=== PATIENT | female | born 1950 | race Caucasian/White ===

== ENCOUNTER → 2016-08-13 | Outpatient (CLI) | payer OTHER ==
[~2016-08-13] MED LIST: ACET-1256 PO; ALBU1AER9 INH; ASPI81TA28 PO; BUSP-8 PO; FLUT0.0529 NAE; HYOS0.1271 PO; IBUP-1451 PO; LORA-741 PO; METO-551 PO; OXYC-57 PO; PRLSR20 PO; SERT-234 PO; SIMV20TA2 PO
== END | disposition home or self-care (01) ==
LOC: C.LAB1850 12:45
PROVIDERS: ATTEND Obstetrics & Gynecology
DX: N83.209 Unspecified ovarian cyst, unspecified side (principal)

== ENCOUNTER 2016-10-05 10:59 | Inpatient (IN) | payer OTHER ==
[2016-09-15 15:49] LABS: BASO % 0.4 %; BASO ABS # 0.03 K/uL (0-0.2); COMPLETE YES; EOS % 1.3 %; HEMATOCRIT 41.8 % (37-47); IG% 0.1 %; LYMPH % 32.8 %; LYMPH ABS # 2.49 K/uL (1.2-3.4); MEAN CELL VOLUME 89.5 fL (80-100); MEAN CORPUSCULAR HEMOGLOBIN 29.1 pg (25-34); MEAN CORPUSCULAR HGB CONC 32.5 g/dl (32-36); MEAN PLATELET VOLUME 10.6 fL (7.4-10.4); MONO % 7.1 %; NEUT % 58.3 %; PLATELET COUNT 210 K/uL (130-400); RED BLOOD COUNT 4.67 M/uL (4.2-5.4); WHITE BLOOD COUNT 7.59 K/uL (4.8-10.8)
[2016-09-15 16:02] LABS: BLOOD UREA NITROGEN 22 mg/dl (7-18); CALCIUM 8.8 mg/dl (8.5-10.1); CARBON DIOXIDE 29 mmol/L (21-32); CHLORIDE 109 mmol/L (98-107); GLUCOSE 86 mg/dl (70-99); POTASSIUM 4.5 mmol/L (3.5-5.1); SODIUM 143 mmol/L (136-145)
[2016-09-21 08:52] VITALS: BMI 29.0; BMI 65.0
[~2016-10-05] VITALS: Ht 167.6 cm; Wt 82.7 kg
[~2016-10-05 10:59] MED LIST changes: +LACTATED RINGER'S 1000ML 1,000 ML IV SCH; -LORA-741 PO; -OXYC-57 PO; -PRLSR20 PO; -SIMV20TA2 PO
[2016-10-05] MEDS ORDERED: EpHEDrine SULFATE INJ 50 MG/ML AMP IV PRN (11:00)
[2016-10-05] MEDS ORDERED: FENTANYL CITRATE INJ 50 MCG/1 ML 2 ML VIAL IV PRN (11:00)
[2016-10-05] MEDS ORDERED: ONDANSETRON INJ 2 MG/ML 2 ML VIAL IV PRN ×2 (11:00→16:30)
[2016-10-05] MEDS ORDERED: ATROPINE SULFATE 0.1 MG/ML 5ML SYR IV PRN (11:00)
[2016-10-05] MEDS ORDERED: MIDAZOLAM HCL 1 MG/ML 2ML VIAL ONE (11:01)
[2016-10-05] MEDS ORDERED: FENTANYL CITRATE INJ 50 MCG/1 ML 2 ML VIAL ONE ×3 (11:01→14:49)
[2016-10-05 11:29] VITALS: BP 137/84; PULSE 71; TEMP 36.8; O2SAT 96; Ht 167.6 cm; Wt 82.7 kg
--- NOTE | 2016-10-05 12:41 | History & Physical Bridge Note ---
H&P Re-Evaluation Bridge Note: I have examined the patient, reviewed the History & Physical and in the interval since the performance of the History & Physical I have noted the following changes of clinical significance: No changes noted
[2016-10-05] MEDS ORDERED: BUPIVACAINE 0.5 % 5 MG/1 ML MPF 30ML VIAL ONE (13:14)
[2016-10-05] MEDS ORDERED: DEXAMETHASONE SOD INJ 4 MG/ML VIAL ONE (13:16)
[2016-10-05] MEDS ORDERED: LIDOCAINE HCL 2% 2 ML VIAL (20MG/ML) ONE (13:16)
[2016-10-05] MEDS ORDERED: GLYCOPYRROLATE INJ 0.2 MG/ML VIAL ONE ×2 (13:16)
[2016-10-05] MEDS ORDERED: NEOSTIGMINE METHYLSULFATE 5 MG/5 ML SYR ONE (13:16)
[2016-10-05] MEDS ORDERED: ONDANSETRON INJ 2 MG/ML 2 ML VIAL ONE ×2 (13:16)
[2016-10-05] MEDS ORDERED: ROCURONIUM BROMIDE 10 MG/ML 5 ML VIAL ONE ×2 (13:16→15:11)
[2016-10-05] MEDS ORDERED: PROPOFOL IV EMULSION 10 MG/ML 20 ML VIAL IV ONE (13:16)
[2016-10-05] MEDS ORDERED: PHENYLEPHRINE 100MCG/ML 5ML SYR ONE (13:55)
[2016-10-05] MEDS ORDERED: EpHEDrine SULFATE 50MG/5ML SYR ONE (13:55)
[2016-10-05] MEDS ORDERED: CEFOXITIN SOD 1 GM VIAL ONE (14:42)
[2016-10-05] MEDS ORDERED: METHYLENE BLUE 0.5% 10 ML VIAL ONE (15:36)
[2016-10-05] MEDS ORDERED: TISSEEL FIBRIN SEALANT 4ML TOP ONE (15:54)
[2016-10-05] MEDS ORDERED: SODIUM CHLORIDE 0.9% 1000ML 1,000 ML IV SCH (16:22)
--- NOTE | 2016-10-05 16:22 | [facility] Post Operative Brief Note ---
Immediate Operative Summary Operative Date Oct 05, 2016. Pre-Operative Diagnosis Ovarian Cyst, Left Ovarian Mass Post-Operative Diagnosis Complex Ovarian Mass, Extensive Adhesions Procedure(s) Performed Repair of Small Bowel Enterotomy, Laparoscopy Conversion to Laparotomy, Extensive Lysis of Adhesion, Removal of Left Adnexa, Cystocopy Surgeon Dr. Maddie Rees Engineer Technical Staff Surgeon(s) Dr. Ash, Dr. Blevins Estimated Blood Loss 100ml Findings Extensive adhesions Specimens a. left adenexa Drains Grimm Anesthesia General Complication(s) Small bowel enterotomy Disposition Recovery Room / PACU
[2016-10-05] MEDS ORDERED: BISACODYL 10 MG SUPP PR PRN (16:30)
[2016-10-05] MEDS ORDERED: MAGNESIUM HYDROXIDE SUSP 30 ML UDC PO PRN (16:30)
[2016-10-05] MEDS ORDERED: MEPERIDINE HCL 75 MG/ML CARP IV PRN (16:30)
[2016-10-05] MEDS ORDERED: NALOXONE HCL 0.4 MG/1 ML VIAL/CARP IV PRN (16:30)
[2016-10-05] MEDS ORDERED: SENNA 8.6 MG TAB PO PRN (16:30)
[2016-10-05] MEDS ORDERED: PROMETHAZINE HCL INJ 25 MG in SODIUM CHLORIDE 0.9% 50ML 50 ML IV PRN (16:30)
[2016-10-05] MEDS ORDERED: MEPERIDINE HCL 50 MG/ML CARP IV PRN (16:30)
[2016-10-05] MEDS ORDERED: HYDROmorphone HCL 0.5MG/ML 50 ML CASSETTE ONE (17:23)
--- NOTE | 2016-10-05 17:35 | Anesthesiology Progress Note ---
Anesthesia Post Op Note Date & Time Oct 05, 2016 at 17:35 Vital Signs Pain Intensity: 0 Vital Signs Past 12 Hours Date Time Temp Pulse Resp B/P Pulse Ox O2 Delivery O2 Flow Rate FiO2 10/05/16 17:25 87 16 123/73 96 Nasal Cannula 4 10/05/16 17:20 36.6 90 16 127/56 96 Nasal Cannula 4 10/05/16 17:10 90 16 120/71 94 Mask 5 10/05/16 17:00 85 16 131/76 96 Mask 5 10/05/16 16:50 85 16 122/71 98 Mask 5 10/05/16 16:40 83 16 112/67 96 Mask 10 10/05/16 16:33 36.0 92 16 156/64 97 Mask 10 10/05/16 11:29 36.8 71 18 137/84 96 Room Air Notes Mental Status: alert / awake / arousable, participated in evaluation Pt Amnestic to Procedure: Yes Nausea / Vomiting: adequately controlled Pain: adequately controlled Airway Patency, RR, SpO2: stable & adequate BP & HR: stable & adequate Hydration State: stable & adequate Neuraxial Anesthesia: was administered, sensory block is resolving Anesthetic Complications: no major complications apparent
[2016-10-05 17:38] VITALS: BP 113/64; PULSE 84; TEMP 36.4; O2SAT 94
[2016-10-05] MEDS ORDERED: CLINDAMYCIN IV 600 MG in DEXTROSE 5% ADD-VANTAGE 50ML 50 ML IV SCH (18:30)
[2016-10-05 18:40] VITALS: BP 104/63; PULSE 82; O2SAT 96
[2016-10-05] MEDS: LACTATED RINGER'S 1000ML 1,000 ML IV SCH (18:41)
[2016-10-05 19:20] VITALS: BP 111/70; PULSE 84; TEMP 36.6; O2SAT 93
[2016-10-05] MEDS: HYDROmorphone HCL 0.5MG/ML 50 ML CASSETTE IV PRN (19:35)
--- NOTE | 2016-10-05 19:36 | OPERATIVE REPORT ---
DATE OF OPERATION: 10/05/2016 PREOPERATIVE DIAGNOSIS: Complex left ovarian mass. POSTOPERATIVE DIAGNOSES: Complex left ovarian mass, extensive adhesions of the abdominal cavity and pelvis. PROCEDURES: Laparoscopy, conversion to laparotomy, extensive lysis of adhesions and small bowel enterotomy and repair and removal of left adnexa, cystoscopy. SURGEON: Dr. Rees. BUTTER PRINTER: Dr. Ash and Dr. Blevins. ESTIMATED BLOOD LOSS: 100 mL. FINDINGS: Extensive adhesions. SPECIMENS: Left adnexa. DRAINS: Grimm catheter. ANESTHETIC: General. COMPLICATIONS: Small bowel enterotomy. DISPOSITION: Recovery room. Reviewed with the patient prior to the procedure, the potential risks of the surgery and reviewed her prior laparotomy for colon resection 15 years ago for diverticulosis. Discussed the possibility of adhesions. She was sent to the recovery room and it is of note also she had a bowel prep prior to surgery. DESCRIPTION OF PROCEDURE: Time-out performed and we began the procedure by inserting a cervical acorn device attached to an Allis attached to her cervix. Grimm placed in her bladder as well. Gloves changed and a supraumbilical incision made with scalpel, dissecting down through the subcutaneous fat, her fascia in fact instantly opened without being cut. It essentially dehisced at the time of entry. I was able to then dissect down and was instantly into the peritoneal cavity. It should be noted no cutting or Metzenbaums were used, the stay sutures just simply fell apart. I was able to then place a blunt-tipped Barron trocar. Balloon inflated and CO2 gas insufflated. FINDINGS: Upper abdomen, there were adhesions, I was able to see past these, they were up by the umbilicus in the left side and the right upper quadrant, but I was able to move a 10 mm laparoscope past the adhesions and see the pelvis where extensive adhesions were attached to both pelvic sidewalls as well as the actual uterus. This was specifically the bowel. I was able to place ports on the right and left side, an accessory port on the lower left side. At this stage, we then were able to dock the robot arm #1 monopolar chato and #2 [place]. I was able to identify on that left side that there were extensive adhesions. We initially attempted to lyse adhesions. However, the adhesions were so thick and I was unable to even see the left adnexa no cutting or electrosurgery was used at this stage, just gentle dissection; however, despite this, the small bowel was attached to the left sidewall and as we dissected this away, a very small enterotomy was noticed. This was less than a centimeter in size. This was despite no use of electrosurgery and gentle dissection. Because of the enterotomy and extensive adhesions, I decided to convert to open procedure and Dr. Ash from general surgery was called. Robot was undocked, instruments had been removed and ports removed, gas allowed to escape. Incisions closed. Fascia closed with 0 Vicryl and the umbilical incision, all incisions were injected with 0.5% Marcaine. A Pfannenstiel incision made with scalpel, dissecting down through the subcutaneous fat, to the fascia in the midline. Fascia then dissected laterally with curved Mayos and then superiorly and inferiorly with the curved Mayos. Rectus muscle split and peritoneal cavity entered without difficulty. We then placed the Pisano Oconer retractor taking care in placement, bladder retractor placed and 2 moist lap packs placed as well as then retractor blade. I was able to have Trendelenburg position this time and in combination with Dr. Ash we analyzed the situation, there was a small bowel enterotomy, was small in nature, seemed to be no other issues with the bowel whatsoever as far as any other damage. This was repaired by Dr. Ash in his notes, he is dictating an operative note regarding this. With respect to the rest of adhesions Dr. Ash and I dissected these away carefully we were able to then identify the ovarian artery and vein on the left side. These were then clamped with a right angle clamp and then cut and then tied with 0 Vicryl. We then dissected the mass out, it was stuck posteriorly and was quite adherent. So at this stage, we then ligated the blood supply distal to the ovary, the utero-ovarian blood supply in the same process. Once this was identified, we were able to lift up the actual mass without rupture and remove it intact. Again, this was extensive adhesiolysis and the process removing the ovary took approximately 45 minutes all into itself. This was then removed, hemostasis was excellent at this stage. Since the only abnormal ovary was the left ovary and the right ovary we had talked about removing as an incidental thing. I did assess the right side; however, there were extensive bowel adhesions over this. I did not feel lysis of these adhesions and potential further enterotomy justified removing a normal ovary. I had discussed with the patient that it would be ideal to remove both ovaries but since the pathological one was removed, I did not think it was prudent to remove the normal right ovary. At this stage because of the extensive dissection of the sidewall, I did perform cystoscopy, which was performed by removing the Grimm catheter using a cystoscope with normal saline. I was able to visualize the bladder, there was no damage, good strong jets of blue dye from the left and right ureter openings and no other abnormalities seen. Cystoscope removed and a new Grimm catheter placed. Instruments removed from the cervix and vagina. Gloves and gown changed. On reinspection after generous irrigation and suction, hemostasis was improved. Because of the oozing nature though we did use 4 mL of Tisseel over the left adnexal bed. At this stage it should be noted, we had generous irrigation and suction prior to this. Retractor removed, packs removed, sponge and instrument counts correct. Fascia closed with #1 PDS, 2 stitches starting laterally. Each stitch tied 8 times and meeting in the midline. Subcutaneous fat irrigated and closed with 2-0 Vicryl. Skin closed with 4-0 subcuticular Monocryl. Sponge and instrument counts correct. Dermabond to the laparoscopic incisions and Steri-Strips to the Pfannenstiel incision. Urine was clear fluid at the end of the procedure and it should be noticed the patient was bowel prepped prior to because of the known risk of enterotomy due to the prior colectomy. Office documentation reflects this, discussion also happened with the patient. It should noted too as well that I had a conversation with her afterwards to inform him of the enterotomy and how this was addressed and fixed and how it will affect her course in the hospital. I attest to the content of the Intraoperative Record and any orders documented therein. Any exceptions are noted below. KONRAD
[2016-10-05] MEDS: CEFOXITIN IV 2,000 MG in DEXTROSE 5% 50ML 50 ML IV SCH (20:14)
[2016-10-05 20:15] VITALS: BP 100/63; PULSE 77; TEMP 36.7; O2SAT 96
[2016-10-05 21:25] VITALS: BP 109/68; PULSE 85
[2016-10-05] MEDS: METOPROLOL TARTRATE 50 MG TAB PO SCH (21:37)
[2016-10-05] MEDS ORDERED: GENTAMICIN INJ 60 MG in DEXTROSE 5% 100ML 100 ML IV SCH (22:00)
[2016-10-06] VITALS (9 sets, daily range): BP systolic 103–128; BP diastolic 62–82; PULSE 75–88; TEMP 36.4–36.9; O2SAT 82–95
[2016-10-06] MEDS: CEFOXITIN IV 2,000 MG in DEXTROSE 5% 50ML 50 ML IV SCH ×2 (04:06→11:56)
[2016-10-06] MEDS: LACTATED RINGER'S 1000ML 1,000 ML IV SCH ×3 (04:06→20:37)
[2016-10-06 07:01] LABS: BASO % 0.1 %; BASO ABS # 0.01 K/uL (0-0.2); COMPLETE YES; HEMATOCRIT 39.1 % (37-47); IG% 0.2 %; LYMPH % 8.3 %; LYMPH ABS # 1.14 K/uL (1.2-3.4); MEAN CELL VOLUME 89.1 fL (80-100); MEAN CORPUSCULAR HEMOGLOBIN 29.4 pg (25-34); MEAN PLATELET VOLUME 10.4 fL (7.4-10.4); MONO % 4.1 %; NEUT % 87.3 %; PLATELET COUNT 216 K/uL (130-400); RED BLOOD COUNT 4.39 M/uL (4.2-5.4); WHITE BLOOD COUNT 13.72 K/uL (4.8-10.8)
--- NOTE | 2016-10-06 07:05 | OPERATIVE REPORT ---
DATE OF OPERATION: 10/05/2016 PREOPERATIVE DIAGNOSIS: Small bowel enterotomy. POSTOPERATIVE DIAGNOSIS: Same. PROCEDURE: Repair of small bowel enterotomy. SURGEON: Giancarlo Ash MD EMERGENCY DEPARTMENT MANAGER: Edi Rees MD FINDINGS: I was asked to assist and participate in this procedure that started as a robotic assisted salpingo-oophorectomy. At one point, bowel contents were noted in the field and I was asked to evaluate for enterotomy. Incision and exposure were already begun. There were multiple adhesions in the pelvis to the fundus of the uterus, behind the uterus and to the colon. The patient had a previous sigmoid resection for diverticular disease. There was a 1-1.5 cm enterotomy on the anterior mesenteric border of a loop of small bowel towards the left side of the pelvis. There were no other enterotomies identified. The loop of small bowel was mobilized and away from adhesions to the lateral abdominal wall and to some other bowel inferiorly. Once it was freed, the other areas were inspected and no other enterotomies were identified. This was closed. It was closed transversely with an inner layer of running 3-0 Vicryl using a canal technique and then that suture line was oversewn with 3-0 silk Lembert interrupted sutures. The repair was felt to be good. The lumen was not compromised and was placed back into its anatomic position. The remainder of the procedure will be dictated by Dr. Rees. I attest to the content of the Intraoperative Record and any orders documented therein. Any exceptio ns are noted below.
[2016-10-06] MEDS: HYDROmorphone HCL 0.5MG/ML 50 ML CASSETTE IV PRN ×2 (07:22→15:21)
[2016-10-06 07:27] LABS: BUN/CREATININE RATIO 9.8 (10-20); CALCIUM 8.4 mg/dl (8.5-10.1); CREATININE 2.1 mg/dl (0.60-1.20); POTASSIUM 4.5 mmol/L (3.5-5.1)
--- NOTE | 2016-10-06 07:44 | OB/GYN Progress Note ---
[facility] Progress Note Date of Service Oct 06, 2016. Subjective conversation w/ patient, physical exam, chart review, lab review Ambulation: limited ambulation Voiding: avila catheter in place Passing Gas: No Diet Tolerance: Clear Liquids Objective Vital Signs Date Time Temp Pulse Resp B/P Pulse Ox O2 Delivery O2 Flow Rate FiO2 10/06/16 07:21 93 Room Air 10/06/16 04:05 36.5 75 16 118/75 95 Nasal Cannula 2.0 10/06/16 00:10 36.4 80 18 103/62 93 Nasal Cannula 2.0 10/05/16 21:25 85 109/68 10/05/16 20:15 36.7 77 16 100/63 96 Nasal Cannula 2.0 10/05/16 20:15 Nasal Cannula 2.0 10/05/16 19:20 36.6 84 16 111/70 93 Nasal Cannula 2.0 10/05/16 18:40 82 18 104/63 96 10/05/16 17:38 94 Nasal Cannula 2.0 10/05/16 17:38 Nasal Cannula 2.0 10/05/16 17:38 36.4 84 18 113/64 94 Nasal Cannula 2.0 10/05/16 17:25 87 16 123/73 96 Nasal Cannula 4 10/05/16 17:20 36.6 90 16 127/56 96 Nasal Cannula 4 10/05/16 17:10 90 16 120/71 94 Mask 5 10/05/16 17:00 85 16 131/76 96 Mask 5 10/05/16 16:50 85 16 122/71 98 Mask 5 10/05/16 16:40 83 16 112/67 96 Mask 10 10/05/16 16:33 36.0 92 16 156/64 97 Mask 10 10/05/16 11:29 36.8 71 18 137/84 96 Room Air Physical Exam General Appearance: WELL-APPEARING Respiratory/Chest: lungs clear Cardiovascular: regular rate, rhythm Abdomen: normal bowel sounds, + distended Incision Description: Clean, Dry & Intact Extremities: no pedal edema Laboratory Results Last 24 Hours Test 10/06/16 06:37 White Blood Count 13.72 K/uL Red Blood Count 4.39 M/uL Hemoglobin 12.9 g/dL Hematocrit 39.1 % Mean Corpuscular Volume 89.1 fL Mean Corpuscular Hemoglobin 29.4 pg Mean Corpuscular Hemoglobin Concent 33.0 g/dl Platelet Count 216 K/uL Mean Platelet Volume 10.4 fL Neutrophils (%) (Auto) 87.3 % Lymphocytes (%) (Auto) 8.3 % Monocytes (%) (Auto) 4.1 % Eosinophils (%) (Auto) 0.0 % Basophils (%) (Auto) 0.1 % Neutrophils # (Auto) 11.98 K/uL Lymphocytes # (Auto) 1.14 K/uL Monocytes # (Auto) 0.56 K/uL Eosinophils # (Auto) 0.00 K/uL Basophils # (Auto) 0.01 K/uL RDW Standard Deviation 50.8 fL RDW Coefficient of Variation 15.5 % Immature Granulocyte % (Auto) 0.2 % Immature Granulocyte # (Auto) 0.03 K/uL Sodium Level 139 mmol/L Potassium Level 4.5 mmol/L Chloride Level 107 mmol/L Carbon Dioxide Level 24 mmol/L Anion Gap 8.0 mmol/L Blood Urea Nitrogen 21 mg/dl Creatinine 2.10 mg/dl Est Creatinine Clear Calc Drug Dose 28.6 ml/min Estimated GFR () 27.7 Estimated GFR (Non- 23.9 BUN/Creatinine Ratio 9.8 Random Glucose 141 mg/dl Calcium Level 8.4 mg/dl Assessment and Plan Post-Op Day Number: 1 Continue Routine Care: Distended, but normal bowel sounds. Encourage ambulation. Stop MEDICAL RECORD CLERK, dulcolax supps JFD
[2016-10-06] MEDS ORDERED: BISACODYL 10 MG SUPP PR PRN (07:45)
[2016-10-06] MEDS: METOPROLOL TARTRATE 50 MG TAB PO SCH ×2 (08:36→21:01)
[2016-10-06] MEDS: SERTRALINE HCL 100 MG TAB PO SCH (08:37)
--- NOTE | 2016-10-06 08:55 | Progress Note ---
Progress Note Date of Service Oct 06, 2016. Progress Note Note, I reviewed the enterotomy with the patient. This was not an unexpected issue as we had discussed pre-op the concerns with prior laparotomy with colectomy. However, reviewed plan and procedure in detail. GEETA
--- NOTE | 2016-10-06 09:33 | Medical Consult ---
Consultation Date of Consultation: Oct 06, 2016. Attending Physician: Lucia Rees M.D. Reason for Consultation: Medical management History of Present Illness This is a 66-year-old female with a past medical history of hypertension hyperlipidemia, GERD, anxiety, depression, chronic tobacco use, status post a complex left ovarian mass with extensive adhesions of the abdominal cavity and pelvis removal and small bowel enterotomy on 10/05/[address] Rees and Dr. Ash. She was completed starting at laparoscopic and was converted to an open surgery due to extensiveness of abdominal adhesions. The patient has had a prior open colectomy and laparoscopic cholecystectomy. Patient was seen this morning and she is complaining of abdominal bloating as well as mild nausea. The patient just received a Dulcolax suppository approximately 15 minutes ago and feels as if she needs to have a bowel movement. Her pain is well controlled. She is able to stand at the bedside and actually reports this is improving her pain and discomfort. The patient does not wear oxygen at baseline. This morning the patient was satting 82% on room air so was placed on supplemental O2, currently on 2 L O2 via NC and her sats are low 90s. The patient lives at home with her who she feels will be able to care for her when she goes home. Past Medical/Surgical History 1. Hypertension 2. hyperlipidemia 3. diverticulosis 4. left ovarian mass status post complex left ovarian removal with extensive adhesions, small bowel enterotomy on 5. anxiety 6. depression 7. GERD 8. Chronic tobacco use Surgical history Laparoscopic cholecystectomy Prior open colectomy Social History Smoking Status: Current Every Day Smoker (half pack a day since age 13) Smokeless Tobacco Use: No Alcohol Use: none Drug Use: none Marital Status: Housing Status: lives with family Allergies Coded Allergies: No Known Allergies (Unverified , 10/05/16) Home Medications ASA 81 mg daily BuSpar 10 mg 3 times a day Colestipol 5 mg twice a day Metoprolol tartrate 50 mg twice a day Omeprazole 20 mg every morning Pro-air 2 puffs 4 times a day as needed for shortness of breath Sertraline 100 mg daily Current Inpatient Medications Current Inpatient Medications Medications (Trade) Dose Ordered Sig/Priscila Route Start Time Stop Time Status Last Admin Dose Admin Ketorolac Tromethamine (Toradol Inj) 15 mg Q6H PRN IV. 10/05/16 16:30 10/10/16 16:29 Future hold Meperidine HCl (Demerol Inj) 50 mg Q4H PRN IV 10/05/16 16:30 10/19/16 16:29 Future hold Meperidine HCl (Demerol Inj) 75 mg Q4H PRN IV 10/05/16 16:30 10/19/16 16:29 Future hold Oxycodone/ Acetaminophen (Percocet 5-325mg Tab) 1 tab for pain scale 1-5 2 t... Q4H PRN PO 10/05/16 16:30 10/19/16 16:29 Ibuprofen (Motrin Tab) 600 mg Q4H PRN PO 10/05/16 16:30 11/04/16 16:29 Ondansetron HCl 4 mg 4 mg Q4H PRN IV 10/05/16 16:30 11/04/16 16:29 Promethazine HCl/ Sodium Chloride (Phenergan Inj/ Nss 50ml) 51 ml @ 204 mls/hr Q4H PRN IV 10/05/16 16:30 11/04/16 16:29 Bisacodyl (Dulcolax Supp) 10 mg DAILY PRN CA 10/05/16 16:30 11/04/16 16:29 10/06/16 08:38 10 MG Magnesium Hydroxide 30 ml 30 ml HS PRN PO 10/05/16 16:30 11/04/16 16:29 Lactated Ringer's (Lr 1000ml) 1,000 ml @ 125 mls/hr Q8H IV 10/05/16 16:16 11/04/16 16:15 10/06/16 04:06 125 MLS/HR Senna (Senokot Tab) 17.2 mg HS PRN PO 10/05/16 16:30 11/04/16 16:29 10/06/16 08:37 17.2 MG Naloxone HCl (Narcan Inj) 0.1 mg Q5M PRN IV 10/05/16 16:30 10/06/16 16:00 Hydromorphone HCl 25 mg 25 mg PRN PRN IV 10/05/16 16:30 10/06/16 16:00 10/06/16 07:22 25 MG Sodium Chloride 1,000 ml @ 15 mls/hr Q24H IV 10/05/16 16:22 10/06/16 16:00 Cefoxitin Sodium/ Dextrose (Mefoxin IV/D5 50ml) 60 ml @ 120 mls/hr Q8H IV 10/05/16 20:00 10/06/16 19:59 10/06/16 04:06 120 MLS/HR Buspirone HCl (Buspar Tab) 10 mg TID PO 10/06/16 08:00 11/05/16 07:59 10/06/16 08:37 10 MG Metoprolol Tartrate (Lopressor Tab) 50 mg BID PO 10/06/16 08:00 11/05/16 07:59 10/06/16 08:36 50 MG Sertraline HCl (Zoloft Tab) 200 mg QAM PO 10/06/16 08:00 11/05/16 07:59 10/06/16 08:37 200 MG Miscellaneous Information (Discontinue SETTER MOLDING AND COREMAKING MACHINES) 1 ea ONE ONCE N/A 10/06/16 16:00 10/06/16 16:01 Bisacodyl (Dulcolax Supp) 10 mg BID PRN CA 10/06/16 07:45 11/05/16 07:44 Review of Systems Constitutional: + fatigue, No fever, chills, sweats,or weakness Eyes: No diplopia, no changes in vision ENT: No sore throat, tinnitus, or trouble swallowing Respiratory: No shortness of breath, No dyspnea at rest or on exertion, no cough or sputum Cardiovascular: No chest pain, palpitations, or flutter Abdomen: + abdominal bloating, moderate abdominal pain near incision, soreness, + nausea, no vomiting. Musculoskeletal: No calf pain, No joint pain, No swelling Genitourinary : No dysuria or urinary frequency, No hematuria Neurologic: No numbness/tingling, no difficulty with ambulation, no sensory or motor deficits Psychiatric: + depression or anxiety hx but none currently Endocrine: No fatigue, No weight changes Integumentary: No itch, No rash Constitutional: + fever Physical Exam Date Time Temp Pulse Resp B/P Pulse Ox O2 Delivery O2 Flow Rate FiO2 10/06/16 07:50 Nasal Cannula 2.0 Humidified Air 10/06/16 07:50 94 Nasal Cannula 2.0 Humidified Oxygen 10/06/16 07:50 36.6 88 18 116/82 82 Room Air 10/06/16 07:21 93 Room Air 10/06/16 04:05 36.5 75 16 118/75 95 Nasal Cannula 2.0 10/06/16 00:10 36.4 80 18 103/62 93 Nasal Cannula 2.0 10/05/16 21:25 85 109/68 10/05/16 20:15 36.7 77 16 100/63 96 Nasal Cannula 2.0 10/05/16 20:15 Nasal Cannula 2.0 10/05/16 19:20 36.6 84 16 111/70 93 Nasal Cannula 2.0 10/05/16 18:40 82 18 104/63 96 10/05/16 17:38 94 Nasal Cannula 2.0 10/05/16 17:38 Nasal Cannula 2.0 10/05/16 17:38 36.4 84 18 113/64 94 Nasal Cannula 2.0 10/05/16 17:25 87 16 123/73 96 Nasal Cannula 4 10/05/16 17:20 36.6 90 16 127/56 96 Nasal Cannula 4 10/05/16 17:10 90 16 120/71 94 Mask 5 10/05/16 17:00 85 16 131/76 96 Mask 5 10/05/16 16:50 85 16 122/71 98 Mask 5 10/05/16 16:40 83 16 112/67 96 Mask 10 10/05/16 16:33 36.0 92 16 156/64 97 Mask 10 10/05/16 11:29 36.8 71 18 137/84 96 Room Air General: awake, alert, no apparent distress, + overweight Head: Normocephalic, atraumatic ENT: PERRL, EOMI, no pharyngeal exudate, mucous membranes moist Chest: Breath sounds are diminished throughout but clear, on 2 L O2, no wheezing , rales, rhonchi Cardiac: Regular rate and rhythm, no murmur, no JVD, normal peripheral pulses, good capillary refill Abdominal: + Abdominal incision above the umbilicus and left lower quadrant, horizontal incision suprapubically approximately 6 inches long with Steri- Strips in place. Incision appears clean and intact. + Abdominal distention, hypoactive bowel sounds, +tender to palpation Extremities: Normal inspection, no peripheral edema or erythema, calfs nontender to palpation Psych: Normal mood and affect Neuro: AAO x 3, strength intact bilaterally and related 5/5, no motor deficits, speech is clear, no peripheral sensory deficits Laboratory Results Last 24 Hours Test 10/06/16 06:37 White Blood Count 13.72 K/uL Red Blood Count 4.39 M/uL Hemoglobin 12.9 g/dL Hematocrit 39.1 % Mean Corpuscular Volume 89.1 fL Mean Corpuscular Hemoglobin 29.4 pg Mean Corpuscular Hemoglobin Concent 33.0 g/dl Platelet Count 216 K/uL Mean Platelet Volume 10.4 fL Neutrophils (%) (Auto) 87.3 % Lymphocytes (%) (Auto) 8.3 % Monocytes (%) (Auto) 4.1 % Eosinophils (%) (Auto) 0.0 % Basophils (%) (Auto) 0.1 % Neutrophils # (Auto) 11.98 K/uL Lymphocytes # (Auto) 1.14 K/uL Monocytes # (Auto) 0.56 K/uL Eosinophils # (Auto) 0.00 K/uL Basophils # (Auto) 0.01 K/uL RDW Standard Deviation 50.8 fL RDW Coefficient of Variation 15.5 % Immature Granulocyte % (Auto) 0.2 % Immature Granulocyte # (Auto) 0.03 K/uL Sodium Level 139 mmol/L Potassium Level 4.5 mmol/L Chloride Level 107 mmol/L Carbon Dioxide Level 24 mmol/L Anion Gap 8.0 mmol/L Blood Urea Nitrogen 21 mg/dl Creatinine 2.10 mg/dl Est Creatinine Clear Calc Drug Dose 28.6 ml/min Estimated GFR () 27.7 Estimated GFR (Non- 23.9 BUN/Creatinine Ratio 9.8 Random Glucose 141 mg/dl Calcium Level 8.4 mg/dl Assessment & Plan 66 yo F with a past medical history of hypertension hyperlipidemia, GERD, anxiety, depression, chronic tobacco use, status post a complex left ovarian mass with extensive adhesions of the abdominal cavity and pelvis removal and small bowel enterotomy on 10/05/[address] Rees and Dr. Ash. She was completed starting at laparoscopic and was converted to an open surgery due to extensiveness of abdominal adhesions. S/p complex left ovarian mass removal and small bowel enterotomy, 10/05/[address] Ash and Dr. Rees - Pain management and bowel regimen per primary service - Incision appears intact, clean, without surrounding erythema Hypoxia - O2 saturations were 82% this morning on room air, patient was placed on 2 L supplemental oxygen and his sats improved to 94%. We'll continue to encourage ambulation. - Encourage incentive spirometry, flutter therapy, ambulation to improve breath sounds as if likely atelectasis and status post surgery causing reduced breath sounds. The patient has an inhaler in the past for acute pneumonia, does not use inhaler regularly - PT OT consults per primary service Chronic tobacco use - Will order a nicotine patch - cessation encouraged Hypertension - Continue metoprolol tartrate 50 mg twice a day, continue baby aspirin daily Hyperlipidemia - Continue colestipol 5 mg twice a day Depression and anxiety - Continue BuSpar 10 mg 3 times a day, sertraline 100 mg daily DVT prophylaxis: Teds, SCDs, ambulation CODE STATUS: Full code Disposition: Patient from home, return when medically stable per primary service ATTENDING ATTESTATION I have seen and examined that patient and agree with the assessment and plan as stated above by ADRIANA Gonzalez. Patient is a 66 y.o.F who originally was to have an elective Abdominal Laparoscopy for removal of adnexal mass. Procedure was complicated by a small bowel enterotomy and requiring general surgery to perform and open laparotomy for repair of SBO enterotomy. Hospitalist service was consulted for general medical management post-op. Post-op patient noticed to be hypoxic although she denies any SOB or chest pain. She also is complaining of nausea and vomiting. Patient noticed to have 200 cc urine output over the shift. Vitals - reviewed GEN- NAD CVS- RRR RESP- CTA ABD- + BS/+ diffuse tenderness EXT- no cyanosis clubbing or edema Labs- Reviewed POD#1 s/p laparoscopy for adnexal mass removal complicated by small bowel enterotomy requiring open laprascopy for repair by general surgery - Gen surgery concerned for SBO - given concern for ureteral laceration I have spoken to general surgery who agrees a CT abdomen/ pelvis would be appropriate - NPO NHAN - patient has had poor urine output post- op - will check CT abdomen pelvis r/o ureteral laceration given surgical complication - continue IVF - if creatinine does not improve/consult nephrology Hypoxia - suspect 2/2 to active abdominal issues - check CXR Thank you for the consult and we will follow
--- NOTE | 2016-10-06 10:34 | Anesthesiology Progress Note ---
Anesthesia Post Op Note Date & Time Oct 06, 2016 at 10:33 Vital Signs Pain Intensity: 6.0 Vital Signs Past 12 Hours Date Time Temp Pulse Resp B/P Pulse Ox O2 Delivery O2 Flow Rate FiO2 10/06/16 10:20 93 Nasal Cannula 2.0 Humidified Oxygen 10/06/16 10:15 88 Room Air 10/06/16 07:50 Nasal Cannula 2.0 Humidified Air 10/06/16 07:50 94 Nasal Cannula 2.0 Humidified Oxygen 10/06/16 07:50 36.6 88 18 116/82 82 Room Air 10/06/16 07:21 93 Room Air 10/06/16 04:05 36.5 75 16 118/75 95 Nasal Cannula 2.0 10/06/16 00:10 36.4 80 18 103/62 93 Nasal Cannula 2.0 Notes Mental Status: alert / awake / arousable, participated in evaluation Pt Amnestic to Procedure: Yes Nausea / Vomiting: adequately controlled Pain: adequately controlled Airway Patency, RR, SpO2: stable & adequate BP & HR: stable & adequate Hydration State: stable & adequate Anesthetic Complications: no major complications apparent
--- NOTE | 2016-10-06 11:47 | Surgery Progress Note ---
Surgery Progress Note Date of Service Oct 06, 2016. Subjective Post OP Day: 1 Not feeling well + nausea abdominal bloating and pain No flatus or bowel movement Walked hallway felt better Tolerated liquids this morning however nauseated now. Objective Vital Signs: Date Time Temp Pulse Resp B/P Pulse Ox O2 Delivery O2 Flow Rate FiO2 10/06/16 10:20 93 Nasal Cannula 2.0 Humidified Oxygen 10/06/16 10:15 88 Room Air 10/06/16 07:50 Nasal Cannula 2.0 Humidified Air 10/06/16 07:50 94 Nasal Cannula 2.0 Humidified Oxygen 10/06/16 07:50 36.6 88 18 116/82 82 Room Air 10/06/16 07:21 93 Room Air 10/06/16 04:05 36.5 75 16 118/75 95 Nasal Cannula 2.0 10/06/16 00:10 36.4 80 18 103/62 93 Nasal Cannula 2.0 10/05/16 21:25 85 109/68 10/05/16 20:15 36.7 77 16 100/63 96 Nasal Cannula 2.0 10/05/16 20:15 Nasal Cannula 2.0 10/05/16 19:20 36.6 84 16 111/70 93 Nasal Cannula 2.0 10/05/16 18:40 82 18 104/63 96 10/05/16 17:38 94 Nasal Cannula 2.0 10/05/16 17:38 Nasal Cannula 2.0 10/05/16 17:38 36.4 84 18 113/64 94 Nasal Cannula 2.0 10/05/16 17:25 87 16 123/73 96 Nasal Cannula 4 10/05/16 17:20 36.6 90 16 127/56 96 Nasal Cannula 4 10/05/16 17:10 90 16 120/71 94 Mask 5 10/05/16 17:00 85 16 131/76 96 Mask 5 10/05/16 16:50 85 16 122/71 98 Mask 5 10/05/16 16:40 83 16 112/67 96 Mask 10 10/05/16 16:33 36.0 92 16 156/64 97 Mask 10 General Appearance: WD/WN, + moderate distress Head: normocephalic, atraumatic Respiratory/Chest: no respiratory distress, no accessory muscle use Abdomen: + distended, + tenderness Incision(s): clean, dry, intact Laboratory Results: Results Past 24 Hours Test 10/06/16 06:37 Range/Units White Blood Count 13.72 4.8-10.8 K/uL Red Blood Count 4.39 4.2-5.4 M/uL Hemoglobin 12.9 12.0-16.0 g/dL Hematocrit 39.1 37-47 % Mean Corpuscular Volume 89.1 80-100 fL Mean Corpuscular Hemoglobin 29.4 25-34 pg Mean Corpuscular Hemoglobin Concent 33.0 32-36 g/dl Platelet Count 216 130-400 K/uL Mean Platelet Volume 10.4 7.4-10.4 fL Neutrophils (%) (Auto) 87.3 % Lymphocytes (%) (Auto) 8.3 % Monocytes (%) (Auto) 4.1 % Eosinophils (%) (Auto) 0.0 % Basophils (%) (Auto) 0.1 % Neutrophils # (Auto) 11.98 1.4-6.5 K/uL Lymphocytes # (Auto) 1.14 1.2-3.4 K/uL Monocytes # (Auto) 0.56 0.11-0.59 K/uL Eosinophils # (Auto) 0.00 0-0.5 K/uL Basophils # (Auto) 0.01 0-0.2 K/uL RDW Standard Deviation 50.8 36.4-46.3 fL RDW Coefficient of Variation 15.5 11.5-14.5 % Immature Granulocyte % (Auto) 0.2 % Immature Granulocyte # (Auto) 0.03 0.00-0.02 K/uL Sodium Level 139 136-145 mmol/L Potassium Level 4.5 3.5-5.1 mmol/L Chloride Level 107 98-107 mmol/L Carbon Dioxide Level 24 21-32 mmol/L Anion Gap 8.0 3-11 mmol/L Blood Urea Nitrogen 21 7-18 mg/dl Creatinine 2.10 0.60-1.20 mg/dl Est Creatinine Clear Calc Drug Dose 28.6 ml/min Estimated GFR () 27.7 Estimated GFR (Non- 23.9 BUN/Creatinine Ratio 9.8 10-20 Random Glucose 141 70-99 mg/dl Calcium Level 8.4 8.5-10.1 mg/dl Assessment & Plan POD # 1 s/p repair of small bowel enterotomy, conversion to ex lap with excision of right adnexa - afebrile - Leukocytosis of 13.72 - moderate abdominal distention with tenderness and nausea - no flatus or bowel movement with suppositories - creatinine 2.10 today - low urine output May have Ileus given amount of distention? Hypoxia Plan: CT of abdomen and pelvis recommended by medicine service to rule out iatrogenic ureter injury given low urine output, agree with this to evaluate abdominal distention Keep patient NPO, may have mouth swabs Continue pain management prn encourage ambulation continue management per Dr. Rees Addendum 10/06/2016 1:58 pm ABDOMEN AND PELVIS CT WITHOUT CONTRAST CT DOSE: 719.99 mGy.cm HISTORY: Postoperative pain r/o bowel obstruction/ concern for laceration of ureter TECHNIQUE: Multiaxial CT images of the abdomen and pelvis were performed without contrast. COMPARISON STUDY: None. FINDINGS: Bibasilar atelectatic change. Liver spleen and pancreas are unremarkable. Evidence for prior cholecystectomy. Kidneys negative for hydronephrosis. Findings consistent with partial distal small bowel obstruction. This potentially relates to an adhesion of the anterior pelvic wall best seen transaxial image 73. Scattered subcutaneous and intraperitoneal air postoperative basis. Grimm catheter within a relatively collapsed bladder. Uterus is midline. Multiple surgical clips in the presacral region. Colonic pattern is nonobstructive with the colon relatively collapsed. No evidence for abscess or collection. IMPRESSION: 1. Findings consistent with a distal partial small bowel obstruction possibly related to adhesions of the anterior pelvic wall. 2. Postoperative subcutaneous as well as intraperitoneal air. 3. Mild bibasilar atelectatic change. PLAN: Keep patient NPO Continue IV fluids and pain management prn encourage ambulation Await return of bowel function and decreased abdominal distention to advance diet to clear liquids Dr. Ash has seen and examined patient, agrees with assessment and plan.
--- NOTE | 2016-10-06 13:10 | DIAGNOSTIC IMAGING REPORT ---
CHEST 2 VIEWS ROUTINE CLINICAL HISTORY: Hypoxia dyspnea COMPARISON STUDY: No previous studies for comparison. FINDINGS: The bones soft tissues and hemidiaphragms are normal. The cardiomediastinal silhouette is normal. The lungs are clear. The pulmonary vasculature is normal. Small focal atelectatic change medial aspect left lower lobe. IMPRESSION: Small focal atelectatic region medial aspect left lower lobe. Electronically signed by: Giancarlo Storm M.D. 10/06/2016 1:08 PM Dictated Date/Time: 10/06/2016 1:07 PM
--- NOTE | 2016-10-06 13:25 | DIAGNOSTIC IMAGING REPORT ---
ABDOMEN AND PELVIS CT WITHOUT CONTRAST CT DOSE: 719.99 mGy.cm HISTORY: Postoperative pain r/o bowel obstruction/ concern for laceration of ureter TECHNIQUE: Multiaxial CT images of the abdomen and pelvis were performed without contrast. COMPARISON STUDY: None. FINDINGS: Bibasilar atelectatic change. Liver spleen and pancreas are unremarkable. Evidence for prior cholecystectomy. Kidneys negative for hydronephrosis. Findings consistent with partial distal small bowel obstruction. This potentially relates to an adhesion of the anterior pelvic wall best seen transaxial image 73. Scattered subcutaneous and intraperitoneal air postoperative basis. Grimm catheter within a relatively collapsed bladder. Uterus is midline. Multiple surgical clips in the presacral region. Colonic pattern is nonobstructive with the colon relatively collapsed. No evidence for abscess or collection. IMPRESSION: 1. Findings consistent with a distal partial small bowel obstruction possibly related to adhesions of the anterior pelvic wall. 2. Postoperative subcutaneous as well as intraperitoneal air. 3. Mild bibasilar atelectatic change. Electronically signed by: Giancarlo Storm M.D. 10/06/2016 1:23 PM Dictated Date/Time: 10/06/2016 1:15 PM
[2016-10-06] MEDS ORDERED: DC PCA ONE (16:00)
[2016-10-06 16:39] LABS: HEMATOCRIT 38.5 % (37-47); MEAN CELL VOLUME 89.1 fL (80-100); MEAN CORPUSCULAR HEMOGLOBIN 30.1 pg (25-34); MEAN CORPUSCULAR HGB CONC 33.8 g/dl (32-36); MEAN PLATELET VOLUME 10.3 fL (7.4-10.4); PLATELET COUNT 217 K/uL (130-400); RED BLOOD COUNT 4.32 M/uL (4.2-5.4); WHITE BLOOD COUNT 12.46 K/uL (4.8-10.8)
[2016-10-06 17:03] LABS: BUN/CREATININE RATIO 12.5 (10-20); CALCIUM 8.7 mg/dl (8.5-10.1); CREATININE 1.8 mg/dl (0.60-1.20); POTASSIUM 4.6 mmol/L (3.5-5.1)
[2016-10-06] MEDS: KETOROLAC TROMETHAMINE 15 MG/ML VIAL IV. PRN (20:59)
[2016-10-07] VITALS (9 sets, daily range): BP systolic 116–161; BP diastolic 69–84; PULSE 78–95; TEMP 36.7–37.2; O2SAT 90–95
[2016-10-07] MEDS: KETOROLAC TROMETHAMINE 15 MG/ML VIAL IV. PRN ×4 (03:26→22:10)
[2016-10-07] MEDS: LACTATED RINGER'S 1000ML 1,000 ML IV SCH ×3 (05:13→21:14)
[2016-10-07 06:47] LABS: BASO % 0.1 %; BASO ABS # 0.01 K/uL (0-0.2); COMPLETE YES; EOS % 0.1 %; HEMATOCRIT 38.2 % (37-47); IG% 0.3 %; LYMPH % 12.7 %; LYMPH ABS # 1.33 K/uL (1.2-3.4); MEAN CELL VOLUME 88.4 fL (80-100); MEAN CORPUSCULAR HEMOGLOBIN 29.4 pg (25-34); MEAN CORPUSCULAR HGB CONC 33.2 g/dl (32-36); MEAN PLATELET VOLUME 10.1 fL (7.4-10.4); NEUT % 82.8 %; PLATELET COUNT 220 K/uL (130-400); RED BLOOD COUNT 4.32 M/uL (4.2-5.4); WHITE BLOOD COUNT 10.49 K/uL (4.8-10.8)
[2016-10-07 07:08] LABS: BUN/CREATININE RATIO 16.9 (10-20); CALCIUM 8.8 mg/dl (8.5-10.1); CREATININE 1.5 mg/dl (0.60-1.20); POTASSIUM 4.1 mmol/L (3.5-5.1)
--- NOTE | 2016-10-07 08:12 | OB/GYN Progress Note ---
[employer] Progress Note Date of Service Oct 07, 2016. Subjective conversation w/ patient, physical exam, chart review, lab review, review of studies Ambulation: ambulating normally Voiding: avila catheter in place Diet Tolerance: NPO Objective Vital Signs Date Time Temp Pulse Resp B/P Pulse Ox O2 Delivery O2 Flow Rate FiO2 10/07/16 03:30 37.2 80 20 138/79 93 Nasal Cannula Humidified Oxygen 10/07/16 00:25 92 Nasal Cannula 2.0 Humidified Oxygen 10/07/16 00:25 37.0 78 16 120/69 92 Nasal Cannula 2.0 Humidified Oxygen 10/06/16 20:25 36.9 77 16 128/79 92 Nasal Cannula 2.0 Humidified Oxygen 10/06/16 20:25 92 Nasal Cannula 2.0 Humidified Oxygen 10/06/16 16:10 Nasal Cannula 2.0 10/06/16 16:10 36.4 80 20 111/71 Room Air 10/06/16 12:30 36.7 80 20 111/73 95 Nasal Cannula 95 Humidified Oxygen 10/06/16 10:20 93 Nasal Cannula 2.0 Humidified Oxygen 10/06/16 10:15 88 Room Air Physical Exam General Appearance: WELL-APPEARING Respiratory/Chest: lungs clear Cardiovascular: regular rate, rhythm Abdomen: normal bowel sounds, non tender, + distended Incision Description: Clean, Dry & Intact Extremities: no calf tenderness Laboratory Results Last 24 Hours Test 10/06/16 15:24 10/07/16 06:31 White Blood Count 12.46 K/uL 10.49 K/uL Red Blood Count 4.32 M/uL 4.32 M/uL Hemoglobin 13.0 g/dL 12.7 g/dL Hematocrit 38.5 % 38.2 % Mean Corpuscular Volume 89.1 fL 88.4 fL Mean Corpuscular Hemoglobin 30.1 pg 29.4 pg Mean Corpuscular Hemoglobin Concent 33.8 g/dl 33.2 g/dl RDW Standard Deviation 50.5 fL 50.9 fL RDW Coefficient of Variation 15.6 % 15.7 % Platelet Count 217 K/uL 220 K/uL Mean Platelet Volume 10.3 fL 10.1 fL Sodium Level 138 mmol/L 139 mmol/L Potassium Level 4.6 mmol/L 4.1 mmol/L Chloride Level 105 mmol/L 106 mmol/L Carbon Dioxide Level 25 mmol/L 24 mmol/L Anion Gap 8.0 mmol/L 9.0 mmol/L Blood Urea Nitrogen 22 mg/dl 25 mg/dl Creatinine 1.80 mg/dl 1.50 mg/dl Est Creatinine Clear Calc Drug Dose 33.3 ml/min 40.0 ml/min Estimated GFR () 33.4 41.6 Estimated GFR (Non- 28.8 35.9 BUN/Creatinine Ratio 12.5 16.9 Random Glucose 109 mg/dl 93 mg/dl Calcium Level 8.7 mg/dl 8.8 mg/dl Neutrophils (%) (Auto) 82.8 % Lymphocytes (%) (Auto) 12.7 % Monocytes (%) (Auto) 4.0 % Eosinophils (%) (Auto) 0.1 % Basophils (%) (Auto) 0.1 % Neutrophils # (Auto) 8.69 K/uL Lymphocytes # (Auto) 1.33 K/uL Monocytes # (Auto) 0.42 K/uL Eosinophils # (Auto) 0.01 K/uL Basophils # (Auto) 0.01 K/uL Immature Granulocyte % (Auto) 0.3 % Immature Granulocyte # (Auto) 0.03 K/uL Assessment and Plan Post-Op Day Number: 2 Continue Routine Care: Less distended today, bowel sounds positive. Creatinine has returned to baselines. A+P: Follow with general surgery team and await return to bowel function. GEETA
[2016-10-07] MEDS: METOPROLOL TARTRATE 50 MG TAB PO SCH ×2 (08:47→20:54)
[2016-10-07] MEDS: SERTRALINE HCL 100 MG TAB PO SCH (08:47)
--- NOTE | 2016-10-07 08:53 | Surgery Progress Note ---
Surgery Progress Note Date of Service Oct 07, 2016. Subjective Post OP Day: 2 Feeling better passing flatus and had 3 bowel movements yesterday abdomen still distended but less and pain is slightly better no nausea Objective Vital Signs: Date Time Temp Pulse Resp B/P Pulse Ox O2 Delivery O2 Flow Rate FiO2 10/07/16 03:30 37.2 80 20 138/79 93 Nasal Cannula Humidified Oxygen 10/07/16 00:25 92 Nasal Cannula 2.0 Humidified Oxygen 10/07/16 00:25 37.0 78 16 120/69 92 Nasal Cannula 2.0 Humidified Oxygen 10/06/16 20:25 36.9 77 16 128/79 92 Nasal Cannula 2.0 Humidified Oxygen 10/06/16 20:25 92 Nasal Cannula 2.0 Humidified Oxygen 10/06/16 16:10 Nasal Cannula 2.0 10/06/16 16:10 36.4 80 20 111/71 Room Air 10/06/16 12:30 36.7 80 20 111/73 95 Nasal Cannula 95 Humidified Oxygen 10/06/16 10:20 93 Nasal Cannula 2.0 Humidified Oxygen 10/06/16 10:15 88 Room Air General Appearance: WD/WN, no apparent distress Head: normocephalic, atraumatic Neck: trachea midline Respiratory/Chest: no respiratory distress, no accessory muscle use Abdomen: normal bowel sounds, + distended, + tenderness (tenderness on palpation general abdomen, improved compared to yesterday) Incision(s): clean, dry, intact Laboratory Results: Results Past 24 Hours Test 10/06/16 15:24 10/07/16 06:31 Range/Units White Blood Count 12.46 10.49 4.8-10.8 K/uL Red Blood Count 4.32 4.32 4.2-5.4 M/uL Hemoglobin 13.0 12.7 12.0-16.0 g/dL Hematocrit 38.5 38.2 37-47 % Mean Corpuscular Volume 89.1 88.4 80-100 fL Mean Corpuscular Hemoglobin 30.1 29.4 25-34 pg Mean Corpuscular Hemoglobin Concent 33.8 33.2 32-36 g/dl RDW Standard Deviation 50.5 50.9 36.4-46.3 fL RDW Coefficient of Variation 15.6 15.7 11.5-14.5 % Platelet Count 217 220 130-400 K/uL Mean Platelet Volume 10.3 10.1 7.4-10.4 fL Sodium Level 138 139 136-145 mmol/L Potassium Level 4.6 4.1 3.5-5.1 mmol/L Chloride Level 105 106 98-107 mmol/L Carbon Dioxide Level 25 24 21-32 mmol/L Anion Gap 8.0 9.0 3-11 mmol/L Blood Urea Nitrogen 22 25 7-18 mg/dl Creatinine 1.80 1.50 0.60-1.20 mg/dl Est Creatinine Clear Calc Drug Dose 33.3 40.0 ml/min Estimated GFR () 33.4 41.6 Estimated GFR (Non- 28.8 35.9 BUN/Creatinine Ratio 12.5 16.9 10-20 Random Glucose 109 93 70-99 mg/dl Calcium Level 8.7 8.8 8.5-10.1 mg/dl Neutrophils (%) (Auto) 82.8 % Lymphocytes (%) (Auto) 12.7 % Monocytes (%) (Auto) 4.0 % Eosinophils (%) (Auto) 0.1 % Basophils (%) (Auto) 0.1 % Neutrophils # (Auto) 8.69 1.4-6.5 K/uL Lymphocytes # (Auto) 1.33 1.2-3.4 K/uL Monocytes # (Auto) 0.42 0.11-0.59 K/uL Eosinophils # (Auto) 0.01 0-0.5 K/uL Basophils # (Auto) 0.01 0-0.2 K/uL Immature Granulocyte % (Auto) 0.3 % Immature Granulocyte # (Auto) 0.03 0.00-0.02 K/uL Assessment & Plan POD # 2 s/p repair of small bowel enterotomy, conversion to ex lap with excision of right adnexa - afebrile - Leukocytosis resolved - moderate abdominal distention (improving ) with tenderness - + flatus and bowel movements - creatinine 1.50 today Plan: Start clear liquids advised patient to go slow Continue pain management prn encourage ambulation continue management per Dr. Negrita Ash has seen and examined patient, agrees with assessment and plan.
--- NOTE | 2016-10-07 13:21 | Hospitalist Progress Note ---
Hospitalist Progress Note Date of Service Oct 07, 2016. Subjective Pt evaluation today including: conversation w/ patient Patient states she feels better Urine output has improved Abdominal pain has improved Constitutional: No fever Eyes: No worsening of vision ENT: No hearing loss Respiratory: No cough, No shortness of breath Cardiovascular: No chest pain Abdomen: + nausea, + pain, No vomiting Musculoskeletal: No joint pain Female : No dysuria Neurologic: No memory loss Psychiatric: No depression symptoms Objective Vital Signs Date Time Temp Pulse Resp B/P Pulse Ox O2 Delivery O2 Flow Rate FiO2 10/07/16 07:35 95 Nasal Cannula 2.0 10/07/16 07:30 36.7 79 20 118/73 90 Room Air 10/07/16 07:25 95 Nasal Cannula 2.0 Humidified Oxygen 10/07/16 03:30 37.2 80 20 138/79 93 Nasal Cannula Humidified Oxygen 10/07/16 00:25 92 Nasal Cannula 2.0 Humidified Oxygen 10/07/16 00:25 37.0 78 16 120/69 92 Nasal Cannula 2.0 Humidified Oxygen 10/06/16 20:25 36.9 77 16 128/79 92 Nasal Cannula 2.0 Humidified Oxygen 10/06/16 20:25 92 Nasal Cannula 2.0 Humidified Oxygen 10/06/16 16:10 Nasal Cannula 2.0 10/06/16 16:10 36.4 80 20 111/71 Room Air Physical Exam General Appearance: WD/WN, no apparent distress Eyes: normal inspection ENT: normal ENT inspection Neck: supple Respiratory/Chest: chest non-tender, no respiratory distress, + decreased breath sounds Cardiovascular: regular rate, rhythm, no edema Abdomen: normal bowel sounds, non tender, soft Extremities: normal range of motion, non-tender 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, no motor/sensory deficits, alert, oriented x 3 Laboratory Results Last 24 Hours Test 10/06/16 15:24 10/07/16 06:31 White Blood Count 12.46 K/uL 10.49 K/uL Red Blood Count 4.32 M/uL 4.32 M/uL Hemoglobin 13.0 g/dL 12.7 g/dL Hematocrit 38.5 % 38.2 % Mean Corpuscular Volume 89.1 fL 88.4 fL Mean Corpuscular Hemoglobin 30.1 pg 29.4 pg Mean Corpuscular Hemoglobin Concent 33.8 g/dl 33.2 g/dl RDW Standard Deviation 50.5 fL 50.9 fL RDW Coefficient of Variation 15.6 % 15.7 % Platelet Count 217 K/uL 220 K/uL Mean Platelet Volume 10.3 fL 10.1 fL Sodium Level 138 mmol/L 139 mmol/L Potassium Level 4.6 mmol/L 4.1 mmol/L Chloride Level 105 mmol/L 106 mmol/L Carbon Dioxide Level 25 mmol/L 24 mmol/L Anion Gap 8.0 mmol/L 9.0 mmol/L Blood Urea Nitrogen 22 mg/dl 25 mg/dl Creatinine 1.80 mg/dl 1.50 mg/dl Est Creatinine Clear Calc Drug Dose 33.3 ml/min 40.0 ml/min Estimated GFR () 33.4 41.6 Estimated GFR (Non- 28.8 35.9 BUN/Creatinine Ratio 12.5 16.9 Random Glucose 109 mg/dl 93 mg/dl Calcium Level 8.7 mg/dl 8.8 mg/dl Neutrophils (%) (Auto) 82.8 % Lymphocytes (%) (Auto) 12.7 % Monocytes (%) (Auto) 4.0 % Eosinophils (%) (Auto) 0.1 % Basophils (%) (Auto) 0.1 % Neutrophils # (Auto) 8.69 K/uL Lymphocytes # (Auto) 1.33 K/uL Monocytes # (Auto) 0.42 K/uL Eosinophils # (Auto) 0.01 K/uL Basophils # (Auto) 0.01 K/uL Immature Granulocyte % (Auto) 0.3 % Immature Granulocyte # (Auto) 0.03 K/uL Assessment and Plan POD#2 s/p laparoscopy for adnexal mass removal complicated by small bowel enterotomy requiring open laparoscopy for repair by general surgery - pain control - continue IVF Small bowel obstruction - seems to be improved - CT abdomen reviewed - advance to clear diet - continue IVF NHAN -improved -continue IVF for 1 more day Hypoxia - suspect 2/2 to active abdominal issues - CXR showed atelectasis - incentive spirometry
[2016-10-07] MEDS ORDERED: NURSING VERBAL MED ORDER ONE (14:00)
[2016-10-07] MEDS ORDERED: LACTATED RINGER S IV ONE (14:00)
[2016-10-08 01:50] VITALS: BP 140/79; PULSE 77; TEMP 37; O2SAT 94
[2016-10-08] MEDS: KETOROLAC TROMETHAMINE 15 MG/ML VIAL IV. PRN ×4 (04:53→18:12)
[2016-10-08] MEDS: LACTATED RINGER'S 1000ML 1,000 ML IV SCH (04:59)
[2016-10-08 05:00] VITALS: BP 130/86; PULSE 79; TEMP 36.6; O2SAT 94
[2016-10-08 07:23] LABS: MEAN CELL VOLUME 88.8 fL (80-100); MEAN CORPUSCULAR HEMOGLOBIN 29.7 pg (25-34); MEAN CORPUSCULAR HGB CONC 33.4 g/dl (32-36); MEAN PLATELET VOLUME 10.7 fL (7.4-10.4); PLATELET COUNT 188 K/uL (130-400); RED BLOOD COUNT 3.94 M/uL (4.2-5.4); WHITE BLOOD COUNT 3.93 K/uL (4.8-10.8)
--- NOTE | 2016-10-08 07:41 | OB/GYN Progress Note ---
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 Subjective conversation w/ patient, physical exam, chart review, lab review Ambulation: ambulating normally Voiding: no voiding problems Passing Gas: Yes Diet Tolerance: Clear Liquids Objective Vital Signs Date Time Temp Pulse Resp B/P Pulse Ox O2 Delivery O2 Flow Rate FiO2 10/08/16 05:00 36.6 79 20 130/86 94 Room Air 10/08/16 01:50 37.0 77 20 140/79 94 Room Air 10/08/16 01:50 Room Air 10/07/16 20:15 36.8 84 18 138/81 93 Room Air 10/07/16 15:55 36.9 78 20 116/73 93 Room Air 10/07/16 15:55 93 Room Air 10/07/16 13:00 93 Room Air 10/07/16 12:00 36.8 95 22 161/84 95 Room Air Physical Exam General Appearance: WELL-APPEARING Abdomen: normal bowel sounds, non tender Incision Description: Clean, Dry & Intact Extremities: no calf tenderness Laboratory Results Last 24 Hours Test 10/08/16 05:52 White Blood Count 3.93 K/uL Red Blood Count 3.94 M/uL Hemoglobin 11.7 g/dL Hematocrit 35.0 % Mean Corpuscular Volume 88.8 fL Mean Corpuscular Hemoglobin 29.7 pg Mean Corpuscular Hemoglobin Concent 33.4 g/dl RDW Standard Deviation 51.0 fL RDW Coefficient of Variation 15.7 % Platelet Count 188 K/uL Mean Platelet Volume 10.7 fL Assessment and Plan Post-Op Day Number: 3 Continue Routine Care: Improving significantly. Plan NADIR and possibly home later today if general surgery and medicine agree. GEETA
[2016-10-08] MEDS ORDERED: OXYC-57 PO (07:42)
[2016-10-08] MEDS ORDERED: IBUP-1451 PO (07:42)
--- NOTE | 2016-10-08 07:43 | Discharge Instructions ---
Discharge Instructions Date of Service Oct 08, 2016. Admission Reason for Admission: Bilateral Ovarian Cysts Discharge Discharge Diagnosis / Problem: pelvic mass Discharge Goals Goal(s): Routine recovery after surgery Activity Recommendations Activity Limitations: per Instructions/Follow-up section . Instructions / Follow-Up Instructions / Follow-Up ACTIVITY RECOMMENDATIONS: Activity: * During the first week at home, your activity should be similar to that done at the hospital prior to discharge. Your primary activity is in-house walking interspersed with rest periods. Preparing lunch for yourself is acceptable. You may go up and down stairs. Try to stay up progressively longer periods of time to help regain your strength more quickly. * During the second week at home, activities should include some meal preparation, walking to strengthen abdominal muscles and riding in a car. You may drive a car and make brief shopping trips at the end of the second week at home. * Lifting should not exceed 15-20 pounds during the first month after surgery. * Sexual intercourse can usually be resumed about 6 weeks after surgery depending on findings at your post-operative examinations. Bathing: * Showers or baths are permissible. Sitting in four to six inches of hot water (sitz bath) is often comforting after vaginal surgery and is permitted at any time. A sitz bath at bedtime can also assist in a better night's sleep. SPECIAL CARE INSTRUCTIONS: The major discomforts related to surgery have now passed and progressive improvement will occur. The tight uncomfortable feeling in the abdominal, pelvic and back area will gradually fade away. Fatigue may take the longest to disappear; your energy level may take several weeks to return to normal. At times you may become frustrated or impatient over not feeling as well or doing as much as you'd like , but this is a normal reaction to surgery and will pass with time. Vaginal Discharge: * Odorous, blood-tinged or brownish discharge may be present for one to three weeks after surgery. * Pads should be used and not tampons. * Stitches may be passed vaginally. * Bleeding may be somewhat increased approximately two weeks after surgery, which is related to the stitches dissolving. * If bleeding becomes free flowing, notify our office at . Bowel Care: * Constipation after surgery is very common. Foods that promote bowel activity (bran, fruit, prune juice) should be included in your diet. * A capsule, DIALOSE-PLUS, can be purchased without a prescription and can be taken daily (one or two capsules) to assist in promoting bowel activity. * If you have had vaginal surgery involving your rectum, we will discuss this when discharged from the hospital. Catheter or "CYSTO-CATH": * Approximately 80% of "bladder repair" patients will require a catheter at home until the swelling recedes. * Some patients require days to weeks before adequate bladder emptying will resume. * In general, after each time you urinate, un-clamp the catheter again. Measure the amount in the bag. When this is consistently below 100cc, call the office to make an appointment to have the catheter removed. Temperature: * Any fever above 100.4 degrees F should be reported to our office at [phone]. FOLLOW-UP: Post-Operative Appointments: * Individual instructions will have been given about the timing of your first examination, but this is usually at the end of the second week home. * You will need to call the office at soon after discharge to make the appointment for your post-op check-up if it has not already been scheduled. * Additional information regarding activity, sexual intercourse and when to return to work will be given at this appointment. WE WISH YOU A SPEEDY RECOVERY! Current Hospital Diet Patient's current hospital diet: Clear Liquid Diet Discharge Diet Recommended Diet: Regular Diet Procedures Procedures Performed: Repair of Small Bowel Enterotomy, Laparoscopy Conversion to Laparotomy, Extensive Lysis of Adhesion, Removal of Left Adnexa, Cystocopy Pending Studies Studies pending at discharge: no Medical Emergencies . Who to Call and When: Medical Emergencies: If at any time you feel your situation is an emergency, please call 911 immediately. . Non-Emergent Contact Non-Emergency issues call your: Primary Care Provider . . "Provider Documentation" section prepared by Edi Rees. VTE Core Measure Inpt VTE Proph given/why not?: Dimitris Espinosa, SCD's
[2016-10-08 08:15] VITALS: BP 145/78; PULSE 75; TEMP 36.7; O2SAT 94
[2016-10-08] MEDS ORDERED: NURSING VERBAL MED ORDER ONE ×2 (08:15→12:00)
[2016-10-08 08:33] LABS: BUN/CREATININE RATIO 25.6 (10-20); CREATININE 1.1 mg/dl (0.60-1.20)
[2016-10-08 08:57] LABS: CALCIUM 9.4 mg/dl (8.5-10.1)
[2016-10-08] MEDS: METOPROLOL TARTRATE 50 MG TAB PO SCH ×2 (09:23→20:47)
[2016-10-08] MEDS: SERTRALINE HCL 100 MG TAB PO SCH (09:24)
[2016-10-08] MEDS: PANTOprazole SOD 40 MG TAB PO SCH (09:34)
--- NOTE | 2016-10-08 10:05 | Hospitalist Progress Note ---
Hospitalist Progress Note Date of Service Oct 08, 2016. Subjective Pt evaluation today including: conversation w/ patient Patient had no acute issues overnight + BM started on full liquids and states she is tolerating that well Denies any n/v or abdominal pain Constitutional: No fever Eyes: No worsening of vision ENT: No hearing loss Respiratory: No cough, No shortness of breath Cardiovascular: No chest pain Abdomen: No constipation, No pain, No vomiting Musculoskeletal: No joint pain Female : No dysuria Objective Vital Signs Date Time Temp Pulse Resp B/P Pulse Ox O2 Delivery O2 Flow Rate FiO2 10/08/16 08:15 Room Air 10/08/16 08:15 36.7 75 18 145/78 94 Room Air 10/08/16 05:00 36.6 79 20 130/86 94 Room Air 10/08/16 01:50 37.0 77 20 140/79 94 Room Air 10/08/16 01:50 Room Air 10/07/16 20:15 36.8 84 18 138/81 93 Room Air 10/07/16 15:55 36.9 78 20 116/73 93 Room Air 10/07/16 15:55 93 Room Air 10/07/16 13:00 93 Room Air 10/07/16 12:00 36.8 95 22 161/84 95 Room Air Physical Exam General Appearance: WD/WN, no apparent distress Eyes: normal inspection ENT: normal ENT inspection Neck: supple Respiratory/Chest: chest non-tender, lungs clear Cardiovascular: regular rate, rhythm Abdomen: normal bowel sounds, non tender, soft Extremities: normal range of motion 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, no motor/sensory deficits, oriented x 3 Laboratory Results Last 24 Hours Test 10/08/16 05:52 White Blood Count 3.93 K/uL Red Blood Count 3.94 M/uL Hemoglobin 11.7 g/dL Hematocrit 35.0 % Mean Corpuscular Volume 88.8 fL Mean Corpuscular Hemoglobin 29.7 pg Mean Corpuscular Hemoglobin Concent 33.4 g/dl RDW Standard Deviation 51.0 fL RDW Coefficient of Variation 15.7 % Platelet Count 188 K/uL Mean Platelet Volume 10.7 fL Sodium Level 139 mmol/L Potassium Level 4.0 mmol/L Chloride Level 106 mmol/L Carbon Dioxide Level 23 mmol/L Anion Gap 10.0 mmol/L Blood Urea Nitrogen 28 mg/dl Creatinine 1.10 mg/dl Est Creatinine Clear Calc Drug Dose 54.5 ml/min Estimated GFR () 60.6 Estimated GFR (Non- 52.3 BUN/Creatinine Ratio 25.6 Random Glucose 92 mg/dl Calcium Level 9.4 mg/dl Assessment and Plan POD#3 s/p laparoscopy for adnexal mass removal complicated by small bowel enterotomy requiring open laparoscopy for repair by general surgery - pain control - discontinue IVF Small bowel obstruction - improved - CT abdomen reviewed - advance to full liquid diet - discontinue IVF NHAN -improved Hypoxia - resolved - suspect 2/2 to active abdominal issues - CXR showed atelectasis - incentive spirometry Ok to d/c from hospitalist perspective when cleared by general surgery
--- NOTE | 2016-10-08 10:52 | Surgery Progress Note ---
Surgery Progress Note Date of Service Oct 08, 2016. Subjective Post OP Day: 3 + bowel movement, + diet (tolerated clear liquids), + feeling well, + flatus, No SOB, No chest pain, No nausea, No vomiting Objective Vital Signs: Date Time Temp Pulse Resp B/P Pulse Ox O2 Delivery O2 Flow Rate FiO2 10/08/16 08:15 Room Air 10/08/16 08:15 36.7 75 18 145/78 94 Room Air 10/08/16 05:00 36.6 79 20 130/86 94 Room Air 10/08/16 01:50 37.0 77 20 140/79 94 Room Air 10/08/16 01:50 Room Air 10/07/16 20:15 36.8 84 18 138/81 93 Room Air 10/07/16 15:55 36.9 78 20 116/73 93 Room Air 10/07/16 15:55 93 Room Air 10/07/16 13:00 93 Room Air 10/07/16 12:00 36.8 95 22 161/84 95 Room Air General Appearance: WD/WN, no apparent distress Head: normocephalic, atraumatic Neck: trachea midline Respiratory/Chest: no respiratory distress, no accessory muscle use Abdomen: soft, + distended (improving), + tenderness (general abdomen, improving compared to yesterday examination, no rigidity or peritonitis) Incision(s): clean, dry, intact, no erythema, no drainage Laboratory Results: Results Past 24 Hours Test 10/08/16 05:52 Range/Units White Blood Count 3.93 4.8-10.8 K/uL Red Blood Count 3.94 4.2-5.4 M/uL Hemoglobin 11.7 12.0-16.0 g/dL Hematocrit 35.0 37-47 % Mean Corpuscular Volume 88.8 80-100 fL Mean Corpuscular Hemoglobin 29.7 25-34 pg Mean Corpuscular Hemoglobin Concent 33.4 32-36 g/dl RDW Standard Deviation 51.0 36.4-46.3 fL RDW Coefficient of Variation 15.7 11.5-14.5 % Platelet Count 188 130-400 K/uL Mean Platelet Volume 10.7 7.4-10.4 fL Sodium Level 139 136-145 mmol/L Potassium Level 4.0 3.5-5.1 mmol/L Chloride Level 106 98-107 mmol/L Carbon Dioxide Level 23 21-32 mmol/L Anion Gap 10.0 3-11 mmol/L Blood Urea Nitrogen 28 7-18 mg/dl Creatinine 1.10 0.60-1.20 mg/dl Est Creatinine Clear Calc Drug Dose 54.5 ml/min Estimated GFR () 60.6 Estimated GFR (Non- 52.3 BUN/Creatinine Ratio 25.6 10-20 Random Glucose 92 70-99 mg/dl Calcium Level 9.4 8.5-10.1 mg/dl Assessment & Plan POD # 3 s/p repair of small bowel enterotomy, conversion to ex lap with excision of right adnexa - afebrile - Leukocytosis resolved - moderate abdominal distention (improving) with tenderness - + flatus and bowel movements - creatinine 1.10 today, improving Plan: Advance diet to full liquids, advised patient to take it slow. Protonix 20 mg tab daily Continue pain management prn encourage ambulation continue management per Dr. Negrita Ash has seen and examined patient, agrees with assessment and plan.
[2016-10-08] MEDS ORDERED: ALUMINUM/MAGNESIUM/SIMETH (MAALOX MAX) 30 ML UDC PO PRN (12:15)
[2016-10-08 15:15] VITALS: BP 139/81; PULSE 77; TEMP 36.9; O2SAT 96
[2016-10-08] MEDS: IBUPROFEN 600 MG TAB PO PRN (18:11)
[2016-10-09] VITALS: BP 131/75; PULSE 76; TEMP 36.4; O2SAT 96
[2016-10-09] MEDS: IBUPROFEN 600 MG TAB PO PRN (01:45)
[2016-10-09] MEDS: OXYCODONE/ACETAMINOPHEN 5-325 TAB PO PRN ×2 (05:18→12:41)
--- NOTE | 2016-10-09 07:09 | OB/GYN Progress Note ---
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 Subjective conversation w/ patient, physical exam Ambulation: ambulating normally Diet Tolerance: Clear Liquids Objective Vital Signs Date Time Temp Pulse Resp B/P Pulse Ox O2 Delivery O2 Flow Rate FiO2 10/09/16 00:00 96 Room Air 10/09/16 00:00 36.4 76 16 131/75 96 Room Air 10/08/16 15:15 Room Air 10/08/16 15:15 36.9 77 20 139/81 96 Room Air 10/08/16 08:15 Room Air 10/08/16 08:15 36.7 75 18 145/78 94 Room Air Physical Exam General Appearance: WELL-APPEARING, NO APPARENT DISTRESS Incision Description: Clean, Dry & Intact Extremities: no calf tenderness Assessment and Plan Post-Op Day Number: 4 Continue Routine Care: - diet being slowly advanced per General Surgery - pt with diarrhea, but pt states that is normal for her - cleared from Inspector And Sorter standpoint - await for general Surgery input
[2016-10-09 08:20] VITALS: BP 139/75; PULSE 73; TEMP 36.6; O2SAT 95
[2016-10-09] MEDS: SERTRALINE HCL 100 MG TAB PO SCH (08:20)
[2016-10-09] MEDS: PANTOprazole SOD 40 MG TAB PO SCH (08:21)
[2016-10-09] MEDS: METOPROLOL TARTRATE 50 MG TAB PO SCH (08:21)
--- NOTE | 2016-10-09 10:48 | Surgery Progress Note ---
Surgery Progress Note Date of Service Oct 09, 2016. Subjective Post OP Day: 4 + bowel movement, + diet (tolerated full liquids yesterday), + feeling well, + flatus, + pain controlled, No SOB, No chest pain, No complaints, No nausea, No vomiting Objective Vital Signs: Date Time Temp Pulse Resp B/P Pulse Ox O2 Delivery O2 Flow Rate FiO2 10/09/16 08:20 36.6 73 18 139/75 95 Room Air 10/09/16 08:20 Room Air 10/09/16 00:00 96 Room Air 10/09/16 00:00 36.4 76 16 131/75 96 Room Air 10/08/16 15:15 Room Air 10/08/16 15:15 36.9 77 20 139/81 96 Room Air General Appearance: WD/WN, no apparent distress Head: normocephalic, atraumatic Neck: trachea midline Respiratory/Chest: no respiratory distress, no accessory muscle use Abdomen: soft, + distended (minimal distention), + tenderness (generalized tenderness) Incision(s): clean, dry, intact, no erythema, no drainage Assessment & Plan POD # 4 s/p repair of small bowel enterotomy, conversion to ex lap with excision of left adnexa - afebrile - Leukocytosis resolved - abdominal distention improving with tenderness - + flatus and bowel movements Plan: Advance diet to regular diet From surgical standpoint if patient tolerated regular diet she may be discharged today Discharge per primary service Patient to follow-up with Dr. Ash in 1-[address] Cline has seen and examined patient, agrees with assessment and plan.
[2016-10-09 12:00] VITALS: BP 133/75; PULSE 67; TEMP 36.7; O2SAT 94
[2016-10-09 14:18] VITALS: BP 133/75; PULSE 67; TEMP 36.7; O2SAT 94
--- NOTE | 2016-10-14 09:24 | DISCHARGE SUMMARY ---
HISTORY OF PRESENT ILLNESS: Mere Hoyt had a complicated laparoscopic conversion to laparotomy procedure for a left adnexal mass. Operative note has been dictated. It should be noted the patient did have a small bowel enterotomy which was repaired by Dr. Ash during the procedure. Her course in the hospital was as follows: On postop day #1 she developed some abdominal distention. She was passing flatus but because of the increased distention we decided to turn back her diet to NPO. The patient was ambulating well at this stage. On postop day #2 the patient started to improve somewhat and was advanced to clear fluids later in the day. CT scan had been done showing a small bowel partial obstruction. This improved over the next several days. Later on postop day #2 she was having bowel movements. By postop day #4 she met discharge criteria. At that time she was ambulating, passing flatus, the distention had decreased, she advanced to full diet, she had no extremity pain and no vaginal bleeding. PHYSICAL EXAMINATION: VITAL SIGNS: Stable. She was afebrile. CHEST EXAMINATION: Clear. CARDIOVASCULAR EXAMINATION: Normal rate and rhythm. No audible murmur. ABDOMINAL EXAMINATION: Bowel sounds positive. Incisions clean, dry and intact. Minimal distention and nontender. EXTREMITY EXAMINATION: Negative. IMPRESSION AND PLAN: Postop day #4 from laparotomy for pelvic mass. The patient had a small bowel enterotomy repaired. She will follow up in the office. She was discharged home on Percocet and told to call with any other concerns.
== END 2016-10-09 15:15 | disposition home or self-care (01) | DRG 742 ==
LOC: ENRESERVTM → ENRESERVDT → C.ACU 10:59 → C.OBG 16:21 → C.MS4N 10-07 09:29
PROVIDERS: ADMIT Obstetrics & Gynecology; ATTEND Obstetrics & Gynecology
PROC: 0TJB8ZZ Inspection of Bladder, Via Natural or Artificial Opening Endoscopic (ICD-10-PCS; principal; 2016-10-05 11:50)
PROC: 0UT10ZZ Resection of Left Ovary, Open Approach (ICD-10-PCS; principal; 2016-10-05 11:50)
PROC: 0DNW0ZZ Release Peritoneum, Open Approach (ICD-10-PCS; principal; 2016-10-05 11:50)
PROC: 0DQ80ZZ Repair Small Intestine, Open Approach (ICD-10-PCS; principal; 2016-10-05 11:50)
DX: N83.202 Unspecified ovarian cyst, left side (principal); N17.9 Acute kidney failure, unspecified; K56.60 Unspecified intestinal obstruction; K57.90 Diverticulosis of intestine, part unspecified, without perforation or abscess without bleeding; I10 Essential (primary) hypertension; K66.0 Peritoneal adhesions (postprocedural) (postinfection); E78.5 Hyperlipidemia, unspecified; K21.9 Gastro-esophageal reflux disease without esophagitis; F32.9 Major depressive disorder, single episode, unspecified; F17.210 Nicotine dependence, cigarettes, uncomplicated; F41.9 Anxiety disorder, unspecified; Z90.49 Acquired absence of other specified parts of digestive tract; Z79.82 Long term (current) use of aspirin; Z79.899 Other long term (current) drug therapy; R09.02 Hypoxemia